=== PATIENT | male | born 1955 | race Caucasian/White ===

== ENCOUNTER 2022-02-05 15:21 | Inpatient (IN) | payer MEDICARE, OTHER ==
[~2022-02-05 15:21] MED LIST: Iopamidol-370 76% 500 ML 1 ML ONE
[2022-02-05 16:49] LABS: Hemoglobin 11.8 g/dL (14.0-18.0); Mean Corpuscular HGB CONC 33.4 g/dL (32.0-36.0); Mean Corpuscular Hemoglobin 32.9 pg (27.0-31.0); Mean Corpuscular Volume 98.3 fL (78.0-98.0); Mean Platelet Volume 6.7 fL (7.4-10.4); Platelet Count 209 thou/uL (130-400); RBC Distribution Width 12.7 % (11.5-14.5); Red Blood Cell (RBC) Count 3.59 mill/uL (4.70-6.10); White Blood Cell (WBC) Count 4.1 thou/uL (4.8-10.8)
[2022-02-05 16:59] LABS: INR-International Normal Ratio 0.9; Prothrombin Time 12.4 sec (12.0-14.7)
[2022-02-05 17:01] LABS: PTT 22.1 sec (22.9-36.1)
[2022-02-05 17:06] LABS: Band 7 % (5-11); Eosinophils 3 % (0-10); Lymphocytes 13 % (21-51); MDiff Complete? YES; Monocytes 8 % (0-10); Neutrophil 69 % (42-75); Ovalocytes SLIGHT = 2-5 cells (100X) (0-1/hpf); Platelet Morphology Comment Appears Adequate; Polychromasia SLIGHT = 2-3 cells (100X) (0-2/hpf)
[2022-02-05 17:17] LABS: ALT (SGPT) 19 U/L (8-55); AST (SGOT) 26 U/L (5-34); Albumin 4.6 g/dL (3.4-4.8); Alkaline Phosphatase 53 U/L (40-110); Anion Gap 15 mmol/L (10-20); BUN (Urea Nitrogen) 15 mg/dL (8.4-25.7); Calc. Creatinine Clearance 0 mL/min (70-130); Calcium 9.3 mg/dL (7.8-10.44); Carbon Dioxide 23 mmol/L (23-31); Chloride 106 mmol/L (98-107); Glucose 82 mg/dL (80-115); Potassium 4.1 mmol/L (3.5-5.1); Protein, Total 7.6 g/dL (5.8-8.1); Sodium 140 mmol/L (136-145)
[2022-02-05 22:13] VITALS: BMI 31.0
[2022-02-05] MEDS ORDERED: Ondansetron PF 4 MG/2 ML Vial IVP PRN (22:37)
[2022-02-05] MEDS ORDERED: Acetaminophen 325 MG TAB PO PRN (22:37)
[2022-02-05] MEDS ORDERED: Pantoprazole 40 MG VIAL IVP SCH (22:45)
[2022-02-06 00:59] LABS: Hemoglobin 9.7 g/dL (14.0-18.0)
[2022-02-06] MEDS: predniSONE 5 MG TAB PO SCH (04:56)
[2022-02-06] MEDS: ABIRATERONE ACETATE 250 MG PO SCH (04:57)
[2022-02-06] MEDS: Pantoprazole 40 MG VIAL IVP SCH ×2 (08:13→21:21)
[2022-02-06] MEDS: BUPRENORPHINE HCL 750 MCG FS SCH ×2 (08:13→21:21)
[2022-02-06 08:23] LABS: #Eosinphils 0.2 thou/uL (0.0-0.7); #Lymphocytes 0.6 thou/uL (1.20-3.40); #Monocytes 0.3 thou/uL (0.11-0.59); #Neutrophils 3.2 thou/uL (1.40-6.50); %Basophils 0.3 % (0.0-1.0); %Eosinophils 5.4 % (0.0-10.0); %Lymphocytes 13.6 % (21.0-51.0); %Monocytes 7.9 % (0.0-10.0); %Neutrophils 72.8 % (42.0-75.0); Hemoglobin 10.8 g/dL (14.0-18.0); Mean Corpuscular HGB CONC 34.3 g/dL (32.0-36.0); Mean Corpuscular Hemoglobin 33.8 pg (27.0-31.0); Mean Corpuscular Volume 98.6 fL (78.0-98.0); Mean Platelet Volume 6.4 fL (7.4-10.4); Platelet Count 141 thou/uL (130-400); RBC Distribution Width 12.7 % (11.5-14.5); Red Blood Cell (RBC) Count 3.19 mill/uL (4.70-6.10); White Blood Cell (WBC) Count 4.3 thou/uL (4.8-10.8)
[2022-02-06 08:45] LABS: Anion Gap 13 mmol/L (10-20); BUN (Urea Nitrogen) 11 mg/dL (8.4-25.7); Calc. Creatinine Clearance 138 mL/min (70-130); Calcium 8.6 mg/dL (7.8-10.44); Carbon Dioxide 22 mmol/L (23-31); Chloride 106 mmol/L (98-107); Glucose 97 mg/dL (80-115); Magnesium 2.2 mg/dL (1.6-2.6); Potassium 4.4 mmol/L (3.5-5.1); Sodium 137 mmol/L (136-145)
[2022-02-06 16:13] LABS: Hemoglobin 11.1 g/dL (14.0-18.0)
[2022-02-06 16:27] LABS: SARS-CoV-2 PCR by NAA Not Detected (NotDetected)
[2022-02-06] MEDS ORDERED: GoLYTELY 4,000 ml Bottle PO SCH (17:00)
[2022-02-07 01:13] LABS: Hemoglobin 10.1 g/dL (14.0-18.0)
[2022-02-07] MEDS: ABIRATERONE ACETATE 250 MG PO SCH (04:45)
[2022-02-07] MEDS: predniSONE 5 MG TAB PO SCH (04:46)
[2022-02-07 05:44] LABS: #Eosinphils 0.2 thou/uL (0.0-0.7); #Lymphocytes 0.6 thou/uL (1.20-3.40); #Monocytes 0.4 thou/uL (0.11-0.59); #Neutrophils 1.6 thou/uL (1.40-6.50); %Basophils 0.5 % (0.0-1.0); %Lymphocytes 20.7 % (21.0-51.0); %Monocytes 13.4 % (0.0-10.0); %Neutrophils 59.4 % (42.0-75.0); Hemoglobin 10.5 g/dL (14.0-18.0); Mean Corpuscular HGB CONC 35.4 g/dL (32.0-36.0); Mean Corpuscular Hemoglobin 34.7 pg (27.0-31.0); Mean Platelet Volume 7.1 fL (7.4-10.4); Platelet Count 156 thou/uL (130-400); RBC Distribution Width 12.7 % (11.5-14.5); Red Blood Cell (RBC) Count 3.03 mill/uL (4.70-6.10); White Blood Cell (WBC) Count 2.7 thou/uL (4.8-10.8)
[2022-02-07 06:07] LABS: Anion Gap 14 mmol/L (10-20); BUN (Urea Nitrogen) 8 mg/dL (8.4-25.7); Calc. Creatinine Clearance 124 mL/min (70-130); Calcium 8.5 mg/dL (7.8-10.44); Carbon Dioxide 24 mmol/L (23-31); Chloride 105 mmol/L (98-107); Glucose 84 mg/dL (80-115); Potassium 3.7 mmol/L (3.5-5.1); Sodium 139 mmol/L (136-145)
[2022-02-07] MEDS: Pantoprazole 40 MG VIAL IVP SCH (08:59)
[2022-02-07] MEDS: BUPRENORPHINE HCL 750 MCG FS SCH (09:00)
[2022-02-07] MEDS ORDERED: Lidocaine 1% PF 5 ML VIAL ONE (10:30)
[2022-02-07] MEDS ORDERED: Glycopyrrolate 0.2 MG/ML 5 ML SYRINGE ONE (10:30)
[2022-02-07] MEDS ORDERED: PROPOFOL 200 MG/20 ML VIAL ONE (10:30)
[2022-02-07 11:31] VITALS: TEMP 97.5
[2022-02-07 15:25] VITALS: BP 112/69
== END 2022-02-07 16:30 | disposition home or self-care (01) | DRG 394 ==
LOC: ERS 15:21 → 2SW 19:10 → OBSVTOIN 02-06 02:14
PROVIDERS: ADMIT Internal Medicine; ATTEND Family Medicine
PROC: 0DBM8ZZ Excision of Descending Colon, Via Natural or Artificial Opening Endoscopic (ICD-10-PCS; principal; 2022-02-07)
PROC: 0W3P8ZZ Control Bleeding in Gastrointestinal Tract, Via Natural or Artificial Opening Endoscopic (ICD-10-PCS; 2022-02-07)
DX: K62.6 Ulcer of anus and rectum (principal); D62 Acute posthemorrhagic anemia; K92.1 Melena; Z20.822 Contact with and (suspected) exposure to COVID-19; E78.5 Hyperlipidemia, unspecified; C61 Malignant neoplasm of prostate; G89.29 Other chronic pain; M54.9 Dorsalgia, unspecified; Z96.642 Presence of left artificial hip joint; K62.7 Radiation proctitis; K63.5 Polyp of colon; W88.1XXA Exposure to radioactive isotopes, initial encounter; Z96.651 Presence of right artificial knee joint; K64.4 Residual hemorrhoidal skin tags; K62.4 Stenosis of anus and rectum; K64.8 Other hemorrhoids; R00.1 Bradycardia, unspecified; I44.0 Atrioventricular block, first degree; Z79.01 Long term (current) use of anticoagulants; Z79.82 Long term (current) use of aspirin; Z86.711 Personal history of pulmonary embolism; Z79.52 Long term (current) use of systemic steroids; Z90.49 Acquired absence of other specified parts of digestive tract; Z82.49 Family history of ischemic heart disease and other diseases of the circulatory system
CPT/HCPCS: 36415; 74177; 80048; 80053; 82274; 83605; 83690; 83735; 84443; 84484; 85025; 85610; 85730; 86850; 86900; 86901; 88305; 93005; 94760; 96374; C9113; G0378; J2704; J7512; Q9967; U0003; U0005

== ENCOUNTER 2023-05-23 12:41 | Outpatient (CLI) | payer MEDICARE, OTHER | END 2023-05-23 12:42 | disposition home or self-care (01) | LOC: CT 12:41 | PROVIDERS: ATTEND Family Medicine | DX: Z00.00 Encounter for general adult medical examination without abnormal findings (principal); R06.02 Shortness of breath; D73.9 Disease of spleen, unspecified | CPT/HCPCS: 71275 ==

== ENCOUNTER 2023-10-17 08:55 | Outpatient (CLI) | payer MEDICARE, OTHER | END 2023-10-17 08:56 | disposition home or self-care (01) | LOC: NM 08:55 | PROVIDERS: ATTEND Specialist | DX: Z47.1 Aftercare following joint replacement surgery (principal); Z96.642 Presence of left artificial hip joint | CPT/HCPCS: 78315; A9503 ==